=== PATIENT | female | born 1965 | race Caucasian/White ===

== ENCOUNTER → 2017-01-11 | Outpatient (CLI) | payer BC ==
--- NOTE | 2017-01-12 11:47 | MM ---
Reason for exam: screening (asymptomatic). Last mammogram was performed 9 years ago. History: Took hormonal contraceptives for 3 years beginning at age 15. Physical Findings: A clinical breast exam by your physician is recommended on an annual basis and results should be correlated with mammographic findings. MG Screening Mammo w CAD Bilateral CC and MLO view(s) were taken. Prior study comparison: January 17, 2008, CAD bilateral diagnostic mammogram. The breast tissue is heterogeneously dense. This may lower the sensitivity of mammography. No significant changes when compared with prior studies. ASSESSMENT: Benign, BI-RAD 2 RECOMMENDATION: Routine screening mammogram of both breasts in 1 year.
== END | disposition home or self-care (01) ==
LOC: RADMAMWWP 16:57
PROVIDERS: ATTEND Internal Medicine
DX: Z12.31 Encounter for screening mammogram for malignant neoplasm of breast (principal)

== ENCOUNTER → 2017-01-21 | Outpatient (CLI) | payer BC ==
[2017-01-21 14:08] LABS: ALT 18 U/L (9-52); AST 22 U/L (14-36); Alkaline Phosphatase 87 U/L (38-126); Anion Gap 11 mmol/L; Blood Urea Nitrogen 9 mg/dL (7-17); Calcium 9.2 mg/dL (8.4-10.2); Carbon Dioxide 29 mmol/L (22-30); Chloride 100 mmol/L (98-107); Cholesterol 235 mg/dL (<200); Glucose 89 mg/dL (74-99); HDL Cholesterol 49 mg/dL (40-60); Non-African American GFR(MDRD) >60 (>60 ml/min/1.73 sqM); Sodium 140 mmol/L (137-145); Total Bilirubin 0.5 mg/dL (0.2-1.3); Total Protein 7.1 g/dL (6.3-8.2); Triglycerides 211 mg/dL (<150)
[2017-01-21 14:14] LABS: Basophils # (A) 0.1 k/uL (0-0.2); Basophils % (A) 1 %; CHCM 33.5; Eosinophils # (A) 0.1 k/uL (0-0.7); Eosinophils % (A) 1 %; HCT 42.1 % (34.0-46.0); HDW 2.39; HGB 14.1 gm/dL (11.4-16.0); Luc # (Auto) 0.12; Luc % (Auto) 1; Lymphocytes # (A) 2.8 k/uL (1.0-4.8); Lymphocytes % (A) 30 %; MCHC 33.4 g/dL (31.0-37.0); Mean Platelet Volume 7.4; Monocytes # (A) 0.5 k/uL (0-1.0); Monocytes % (A) 6 %; Neutrophils # (A) 5.7 k/uL (1.3-7.7); Neutrophils % (A) 61 %; RBC 4.68 m/uL (3.80-5.40); RDW 12.2 % (11.5-15.5); WBC 9.2 k/uL (3.8-10.6); WBC (Perox) 9.59
[2017-01-21 14:55] LABS: Hepatitis C Virus IgG Index 0.01
[2017-01-21 14:58] LABS: Hepatitis C Virus IgG Ab Negative (Negative)
== END | disposition home or self-care (01) ==
LOC: LABWHC1 13:41
PROVIDERS: ATTEND Internal Medicine
DX: G60.9 Hereditary and idiopathic neuropathy, unspecified (principal); E78.5 Hyperlipidemia, unspecified; E55.9 Vitamin D deficiency, unspecified; M79.7 Fibromyalgia
CPT/HCPCS: 36415; 80053; 80061; 82306; 84443; 85025; 86803

== ENCOUNTER → 2019-02-23 | Outpatient (CLI) | payer BC ==
[2019-02-23 15:01] LABS: Basophils % (A) 0 %; Eosinophils # (A) 0.3 k/uL (0-0.7); Eosinophils % (A) 3 %; HCT 40.7 % (34.0-46.0); HGB 13.2 gm/dL (11.4-16.0); Lymphocytes # (A) 2.3 k/uL (1.0-4.8); Lymphocytes % (A) 30 %; MCH 30.8 pg (25.0-35.0); MCHC 32.3 g/dL (31.0-37.0); MCV 95.5 fL (80.0-100.0); Mean Platelet Volume 7.1; Monocytes # (A) 0.3 k/uL (0-1.0); Monocytes % (A) 4 %; Neutrophils # (A) 4.6 k/uL (1.3-7.7); Neutrophils % (A) 61 %; Platelet Count 532 k/uL (150-450); RBC 4.27 m/uL (3.80-5.40); RDW 13.5 % (11.5-15.5); WBC 7.6 k/uL (3.8-10.6)
[2019-02-23 20:32] LABS: Albumin/Globulin Ratio 1.74 (1.60-3.17); Anion Gap 8.1 mmol/L (4.00-12.00); Carbon Dioxide 28.9 mmol/L (21.6-31.8); Globulin 2.3 g/dL (1.6-3.3); Potassium 3.9 mmol/L (3.5-5.5); Total Bilirubin 0.6 mg/dL (0.3-1.2); Total Protein 6.3 g/dL (6.2-8.2)
== END | disposition home or self-care (01) ==
LOC: LABWHC1 14:25
PROVIDERS: ATTEND Internal Medicine
DX: E78.5 Hyperlipidemia, unspecified (principal); E55.9 Vitamin D deficiency, unspecified
CPT/HCPCS: 36415; 80053; 80061; 82306; 85025

== ENCOUNTER → 2020-02-12 | Outpatient (CLI) | payer BC ==
--- NOTE | 2020-02-12 16:43 | MR ---
EXAMINATION TYPE: MR cervical spine wo con DATE OF EXAM: 02/12/2020 COMPARISON: None HISTORY: Neck pain TECHNIQUE: Multiplanar, multisequence images of the cervical spine were acquired. C2-C3: Uncovertebral joint hypertrophy causes some left-sided foraminal encroachment. No significant spinal stenosis. No disc herniation. C3-C4: Left-sided foraminal encroachment is present due to uncovertebral joint hypertrophy and facet arthropathy. There is posterior extension endplate disc complex causing anterior mass effect on the t hecal sac and possibly contacting the anterior cervical cord, only mild spinal stenosis. C4-C5: Posterior broad-based disc bulge causes mild anterior mass effect on the thecal sac. No signif icant spinal stenosis or foraminal encroachment. C5-C6: Bilateral foraminal encroachment is present. Posterior extension endplate disc complex does ca use some mild anterior mass effect on the thecal sac, only mild spinal stenosis. C6-C7: Bilateral foraminal encroachment is present. There is a Chiba joint hypertrophy and facet arth ropathy causing left-sided foraminal encroachment greater than right. Posterior extension endplate di sc complex results in mild spinal stenosis, effacement of the anterior thecal sac. C7-T1: No evidence for degenerative disc disease. No disc bulge/herniation or protrusion. No Canal stenosis. Foramina are patent bilaterally. Cervical segments are intact. There is normal alignment. Cervical spinal cord is of normal signal. Craniovertebral junction relationships are within normal limits. There is multilevel spondylosis an d motion on the exam. Endplate discogenic marrow signal changes are present, there is loss of disc he ight signal at intervertebral levels with relative sparing at C7-T1. There is a spinal curvature. Cys tic lesion possibly present within the right and likely left lobe lobe of the thyroid. Inflammatory c hanges are present within the bilateral maxillary sinuses. IMPRESSION: Degenerative disc disease, multilevel foraminal encroachment.
== END | disposition home or self-care (01) ==
LOC: RADMRIMAIN 15:09
PROVIDERS: ATTEND Psychiatry & Neurology Neurology
DX: M50.30 Other cervical disc degeneration, unspecified cervical region (principal)
CPT/HCPCS: 72141

== ENCOUNTER → 2022-06-09 | Outpatient (CLI) | payer BC ==
--- NOTE | 2022-06-09 12:49 | XR ---
EXAMINATION TYPE: XR abdomen 1V DATE OF EXAM: 06/09/2022 12:42 PM CLINICAL HISTORY: Lower abdominal pain. TECHNIQUE: 3 supine KUB images of the abdomen are obtained. COMPARISON: Chest x-ray December 02, 2015. FINDINGS: Some paucity of bowel gas. Gas seen in nondistended bowel loops in the pelvis. Gas noted wi thin prominent colon along the periphery including right transverse and left colon. Not well-seen sig moid or rectal colon. Possible soft tissue mass with shouldering in the proximal transverse colon. Na rrowing and sclerosis at pubic symphysis. No abnormal calcifications. IMPRESSION: Overall nonspecific bowel gas pattern. One must consider possible colonic mass or neoplasm. Correlate clinically. Consider CT abdomen and pelvis to further evaluate.
== END | disposition home or self-care (01) ==
LOC: RADXRMAIN 12:28
PROVIDERS: ATTEND Family Medicine
DX: K59.00 Constipation, unspecified (principal)
CPT/HCPCS: 74018

== ENCOUNTER → 2022-08-13 | Outpatient (CLI) | payer BC ==
--- NOTE | 2022-08-15 09:53 | CT ---
EXAMINATION TYPE: CT abdomen pelvis w con CT DLP: 452.4 mGycm, Automated exposure control for dose reduction was used. DATE OF EXAM: 08/13/2022 5:42 PM COMPARISON: CT abdomen pelvis most recent from 06/26/2010 CLINICAL INDICATION:Female, 57 years old with history of R19.09 INTRA ABD PELVIC SWALLOW MASS LUMP; I NTRA ABD PELVIC SWELLING MASS LUMP TECHNIQUE: Axial CT of the abdomen and pelvis. Sagittal and coronal reformats were created on a [employer] workstation. Contrast used:100ML mL of Isovue 300 with IV Contrast, Oral contrast used: with Oral Contrast FINDINGS: LOWER CHEST: Unremarkable ABDOMEN LIVER: Scattered hepatic cysts are present GALLBLADDER AND BILE DUCTS: Layering increased densities within the lumen consistent with gallstones are present. Extra hepatic biliary dilation with the common bile duct measuring up to 10 mm which is increased from 6 mm in 2010. Mild intrahepatic biliary dilatation is also present. PANCREAS: There is pancreatic divisum morphology. No obvious obstructing mass of the SPLEEN: Unremarkable. ADRENAL GLANDS: Unremarkable. KIDNEYS AND URETERS: No evidence of hydronephrosis or renal calculus. Medial right upper kidney cyst. PELVIS BLADDER: Unremarkable REPRODUCTIVE: The uterus is surgically absent. ABDOMEN & PELVIS STOMACH AND BOWEL: No evidence of bowel obstruction. Appendix is normal. PERITONEUM: No evidence of pneumoperitoneum or free fluid. VASCULATURE: No evidence of aortic aneurysm. MUSCULOSKELETAL: No acute osseous abnormalities multilevel disc degeneration changes with disc bulgin g throughout the lumbar spine. LYMPH NODES: No gross evidence for lymphadenopathy. SOFT TISSUE/ABDOMINAL WALL: Left fat containing inguinal hernia. Fat-containing umbilical hernia. IMPRESSION: 1. No evidence for acute intra-abdominal process. No evidence for intraluminal mass. 2. Extra hepatic biliary dilation which has increased from 2009, additionally there is intrahepatic b iliary dilation which is similar to 2010. Cholelithiasis is present. No obvious choledocholithiasis i dentified. MRCP could be used to evaluate biliary system. 3. Pancreatic divisum suggested. 4. Left inguinal fat-containing hernia. 5. Fat-containing umbilical hernia.
== END | disposition home or self-care (01) ==
LOC: RADCTMAIN 14:53
PROVIDERS: ATTEND Family Medicine
DX: K80.20 Calculus of gallbladder without cholecystitis without obstruction (principal); K42.9 Umbilical hernia without obstruction or gangrene; K40.30 Unilateral inguinal hernia, with obstruction, without gangrene, not specified as recurrent
CPT/HCPCS: 82565; 84520; 74177; 36415; Q9967

== ENCOUNTER → 2023-04-29 | Outpatient (CLI) | payer BC ==
--- NOTE | 2023-05-02 08:23 | MM ---
Reason for Exam: Screening (asymptomatic). Last mammogram was performed 6 year(s) and 4 month(s) ago. Patient History: Menarche at age 11. First Full-Term at age 16. Left ovary removed at age 45. Right ovary removed at age 45. Hysterectomy at age 45. Postmenopausal. Patient has history of breast feeding. Hormonal Contraceptives for 3 years from age 15 until age 18. Benign Excisional Biopsy on the right side. Risk Values: Renita 5 year model risk: 1.2%. NCI Lifetime model risk: 6.3%. Prior Study Comparison: 01/17/2008 Bilateral Diagnostic Mammogram, [facility]. 01/11/2017 Bilateral Screening Mammogram, [facility]. Tissue Density: There are scattered fibroglandular densities. Findings: Analyzed By CAD. Benign-appearing bilateral axillary lymph nodes are redemonstrated. There is no suspicious group of microcalcifications or new suspicious mass in either breast. Overall Assessment: Negative, BI-RAD 1 Management: Screening Mammogram of both breasts in 1 year. . Patient should continue monthly self-breast exams. A clinical breast exam by your physician is recommended on an annual basis. This exam should not preclude additional follow-up of suspicious palpable abnormalities. Note on Renita scores and lifetime risk: 1. A Renita score greater than 3% is considered moderate risk. If this is the case, consider specialist referral to assess eligibility for a risk reducing agent. 2. If overall lifetime risk for the development of breast cancer is 20% or higher, the patient may qualify for future screening with alternating mammogram and breast MRI. Electronically signed and approved by: Clifton Kang M.D.
== END | disposition home or self-care (01) ==
LOC: RADMAMWWP 10:47
PROVIDERS: ATTEND Family Medicine
DX: Z12.31 Encounter for screening mammogram for malignant neoplasm of breast (principal); Z78.0 Asymptomatic menopausal state
CPT/HCPCS: 77063; 77067

== ENCOUNTER 2023-08-10 10:15 | Day surgery (SDC) | payer BC ==
[2023-08-08 13:00] VITALS: BMI 23.1
[~2023-08-10 10:15] MED LIST: LACTATED RINGERS 1,000 ML IV SCH; LIDOCAINE 1% (10MG/ML) FOR IV START INTRADERMA PRN
[2023-08-10 10:35] VITALS: TEMP 97
--- NOTE | 2023-08-10 11:33 | P.PCN ---
Date of Procedure: 08/10/23 Procedure(s) Performed: BRIEF HISTORY: Patient is a 58-year-old, pleasant white female scheduled for an upper endoscopy as a part of evaluation of nausea, decreased appetite and weight loss of 10 pounds in the last 3 months.. PROCEDURE PERFORMED: Esophagogastroduodenoscopy with biopsy . PREOPERATIVE DIAGNOSIS: .nausea/epigastric discomfort/esophagitis. 3 months duration IV sedation per anesthesia. PROCEDURE: After informed consent was obtained, the patient was brought into the endoscopy unit. IV sedation was administered by Anesthesia under continuous monitoring. Initially the Olympus GIF-140 video endoscope was inserted into the mouth. Esophagus intubated without any difficulty. It was gradually advanced into the stomach and duodenum and carefully examined. The bulb and the second part of the duodenum appeared normal. biopsies were done from the duodenum to rule out celiac disease. The scope at this time was withdrawn to the stomach, adequately insufflated with air, and upon careful examination, mucosa of the antrum, and mild mottling of the mucosa consistent with gastritis and biopsies were done from this area. body, cardia and the fundus appeared normal. The scope was then withdrawn into the esophagus. The GE junction was located at 39 cm from the incisors. there was some erythema the GE junction consistent with LA grade a reflux esophagitis. Also there was a 3 mm probably as appearing mucosa proximal to the GE junction was biopsied. Rest of the The esophagus appeared normal. There were no erosions or ulcerations seen and the patient tolerated the procedure well. IMPRESSION: 1. Mild erythema of the GE junction with 3 mm of Cobian's appearing mucosa just proximal to the GE junction status post biopsy. 2 Mild antral gastritis. RECOMMENDATIONS: The findings of this examination were discussed with the catrina as well as a family. She was advised to follow with the biopsy results. If the biopsy confirms the presence of Cobian's esophagus he can have a repeat upper endoscopy
[2023-08-10 11:37] VITALS: RESP 14
[2023-08-10 11:57] VITALS: BP 106/76; PULSE 80
== END 2023-08-10 12:39 ==
LOC: ORWHC2ENDO 10:15
PROVIDERS: ATTEND Internal Medicine Gastroenterology
DX: K20.90 Esophagitis, unspecified without bleeding (principal); K22.70 Barrett's esophagus without dysplasia; F17.200 Nicotine dependence, unspecified, uncomplicated; G60.9 Hereditary and idiopathic neuropathy, unspecified; F31.9 Bipolar disorder, unspecified; Z79.811 Long term (current) use of aromatase inhibitors; Z98.890 Other specified postprocedural states; Z88.0 Allergy status to penicillin
CPT/HCPCS: 43239; 88305; 88312